=== PATIENT | male | born 1990 | race American Indian/Alaskan Native ===

== ENCOUNTER 2018-11-08 20:57 | Emergency (ER) | payer SELFPAY ==
--- NOTE | 2018-11-08 21:50 | Event Note ---
ED Screening Note Date of service: 11/08/18 Time: 21:47 ED Screening Note: 28 y o male presents with left hand pain and swelling s/p injury to hand yesterday This initial assessment/diagnostic orders/clinical plan/treatment(s) is/are subject to change based on patients health status, clinical progression and re- assessment by fellow clinical providers in the ED. Further treatment and workup at subsequent clinical providers discretion. Patient/guardian urged not to elope from the ED as their condition may be serious if not clinically assessed and managed. Initial orders include: xr hand
[2018-11-08 21:52] VITALS: BP 121/65
--- NOTE | 2018-11-08 22:56 | XRay Report ---
LEFT HAND 3 VIEWS 04/05/2007 INDICATION: pain and swelling COMPARISON: None available. FINDINGS: An oblique fracture is seen through the proximal to mid shaft of the fourth metacarpal with mild ventral angulation and dorsal displacement. No dislocation is seen. Signer Name: Yovani Sidhu MD Signed: 11/08/2018 10:52 PM Workstation Name: [id number]
[2018-11-08] MEDS ORDERED: NORCO 7.5/325 PO ONE (23:04)
[2018-11-08] MEDS ORDERED: IBUPROFEN PO ONE (23:04)
[2018-11-08] MEDS ORDERED: ZOFRAN ODT PO ONE (23:05)
--- NOTE | 2018-11-08 23:08 | Emergency Department Report ---
ED Upper Extremity Inj HPI - General Chief Complaint: Extremity Injury, Upper Stated Complaint: LT HAND SWOLLEN Time Seen by Provider: 11/08/18 21:47 Source: patient Mode of arrival: Ambulatory Limitations: No Limitations - History of Present Illness Initial Comments: Patient is a 28-year-old AA male with no past medical history who presents to the ED with complaint of acute onset persistent severe left hand pain with mild swelling and deformity after the left hand was crushed between two metallic plates at work when lifting heavy metallic objects about 4 hours ago. Patient states that he is unable to perform any active range of motion with the left hand because of severe pain. Patient denies fall, dizziness, nausea, vomiting, numbness and tingling or weakness of the left and, left wrist pain or injury or puncture wound. MD Complaint: Injury to:: left, hand -: Sudden, hour(s) (4) Other Extremity Injury: Hand: Left (left hand) Other Injuries: none Handedness: left (hand) Place: work Improves With: rest Worsens With: movement of extremity Context: direct blow, crush, injury Associated Symptoms: denies other symptoms. denies: weakness, numbness, neck pain, suspects foreign body, nausea/vomiting, heard/felt popping sensat, other - Related Data Previous Rx's Medication Instructions Recorded Last Taken Type Cyclobenzaprine [Flexeril] 10 mg PO Q8H PRN #21 tablet 11/08/18 Unknown Rx HYDROcodone/APAP 7.5-325 [[place] 1 each PO Q6HR PRN #12 tablet 11/08/18 Unknown Rx 7.5/325] Ibuprofen [Motrin] 600 mg PO Q8H PRN #24 tablet 11/08/18 Unknown Rx Allergies Allergy/AdvReac Type Severity Reaction Status Date / Time Iodine and Iodide Containing Allergy Hives Verified 11/08/18 21:16 Produc shellfish derived Allergy Angioedema Verified 11/08/18 21:16 ED Review of Systems ROS: Stated complaint: LT HAND SWOLLEN Other details as noted in HPI Constitutional: denies: chills, fever Eyes: denies: eye pain, eye discharge, vision change ENT: denies: ear pain, throat pain Respiratory: denies: cough, shortness of breath, wheezing Cardiovascular: denies: chest pain, palpitations Endocrine: no symptoms reported Gastrointestinal: denies: abdominal pain, nausea, diarrhea Genitourinary: denies: urgency, dysuria Musculoskeletal: joint swelling (left hand), arthralgia (left hand pain, swelling and mild deformity). denies: back pain Skin: denies: rash, lesions Neurological: denies: headache, weakness, paresthesias Psychiatric: denies: anxiety, depression Hematological/Lymphatic: denies: easy bleeding, easy bruising ED Past Medical Hx - Past Medical History Previous Medical History?: No - Surgical History Past Surgical History?: No - Social History Smoking Status: Current Every Day Smoker Substance Use Type: None - Medications Home Medications: Home Medications Medication Instructions Recorded Confirmed Last Taken Type Cyclobenzaprine [Flexeril] 10 mg PO Q8H PRN #21 tablet 11/08/18 Unknown Rx HYDROcodone/APAP 7.5-325 [[place] 1 each PO Q6HR PRN #12 tablet 11/08/18 Unknown Rx 7.5/325] Ibuprofen [Motrin] 600 mg PO Q8H PRN #24 tablet 11/08/18 Unknown Rx ED Physical Exam - General Limitations: No Limitations General appearance: alert, in no apparent distress - Head Head exam: Present: atraumatic, normocephalic, normal inspection - Eye Eye exam: Present: normal appearance, PERRL, EOMI Pupils: Present: normal accommodation - ENT ENT exam: Present: normal exam, normal orophraynx, mucous membranes moist, TM's normal bilaterally, normal external ear exam - Neck Neck exam: Present: normal inspection, full ROM. Absent: tenderness, meningismus - Respiratory Respiratory exam: Present: normal lung sounds bilaterally. Absent: respiratory distress, wheezes, rales, rhonchi, chest wall tenderness, accessory muscle use, decreased breath sounds - Cardiovascular Cardiovascular Exam: Present: regular rate, normal rhythm, normal heart sounds. Absent: systolic murmur, diastolic murmur, rubs, gallop - GI/Abdominal GI/Abdominal exam: Present: soft, normal bowel sounds. Absent: distended, tenderness, guarding, hyperactive bowel sounds, hypoactive bowel sounds, mass - Rectal Rectal exam: Present: deferred - Extremities Exam Extremities exam: Present: normal inspection, tenderness (left hand tenderness, swelling and mild deformity), joint swelling (left hand). Absent: full ROM (limited ROM due to pain), normal capillary refill, pedal edema, calf tenderness - Back Exam Back exam: Present: normal inspection, full ROM. Absent: tenderness, CVA tenderness (R), CVA tenderness (L), muscle spasm, paraspinal tenderness - Neurological Exam Neurological exam: Present: alert, oriented X3, CN II-XII intact, normal gait, reflexes normal - Psychiatric Psychiatric exam: Present: normal affect, normal mood - Skin Skin exam: Present: warm, dry, intact, normal color. Absent: rash ED Course Vital Signs 11/08/18 11/08/18 21:49 23:45 Temperature 98.3 F Pulse Rate 71 68 Respiratory 18 16 Rate Blood Pressure 121/65 O2 Sat by Pulse 100 99 Oximetry - Reevaluation(s) Reevaluation #1: 11/09/18 06:40 This is a 28-year-old male who presented to the ED with severe left hand pain, mild swelling and deformity after injury at work 4 hours ago. Patient is alert and oriented 3 and is not in distress. Patient was treated for pain in the ED and the left hand x-ray shows an oblique fracture through the proximal to mid shaft of the fourth metacarpal with mild ventral angulation and dorsal displacement. No dislocation is seen. Left hand was splinted with the ulna- gutter splint. The patient tolerated the procedure well and was neurovascularly intact after the procedure. The patient was discharged home on pain medications and given a referral to the orthopedic surgeon client support consultant Dr. Swift'alee for further evaluation. Patient is advised to contact Dr. Swift's office first thing on Saturday morning on 11/10/18 to schedule an appointment for follow up. The patient was however advised to return to the ED immediately if symptoms get worse. ED Medical Decision Making - Radiology Data Radiology results: report reviewed, image reviewed Findings [facility] [address] [place] [address] XRay Report Signed Patient: NETTIE LEE MR#: [id number] : 1990 Acct:[id number] Age/Sex: 28 / M ADM Date: 11/08/18 Loc: ED Attending Dr: Ordering Physician: LA SHAY Date of Service: 11/08/18 Procedure(s): XR hand 3+V LT Accession Number(s): [id number] cc: LA SHAY Fluoro Time In Minutes: LEFT HAND 3 VIEWS 04/05/2007 INDICATION: pain and swelling COMPARISON: None available. FINDINGS: An oblique fracture is seen through the proximal to mid shaft of the fourth metacarpal with mild ventral angulation and dorsal displacement. No dislocation is seen. Signer Name: Yovani Sidhu MD Signed: 11/08/2018 10:52 PM Workstation Name: [id number] Transcribed By: GJ Dictated By: Yovani Sidhu MD Electronically Authenticated By: Yovani Sidhu MD Signed Date/Time: 11/08/18 2259 - Medical Decision Making This is a 28-year-old male who presented to the ED with severe left hand pain, mild swelling and deformity after injury at work 4 hours ago. Patient is alert and oriented 3 and is not in distress. Patient was treated for pain in the ED and the left hand x-ray shows an oblique fracture through the proximal to mid shaft of the fourth metacarpal with mild ventral angulation and dorsal displacement. No dislocation is seen. Left hand was splinted with the ulna- gutter splint. The patient tolerated the procedure well and was neurovascularly intact after the procedure. The patient was discharged home on pain medications and given a referral to the orthopedic surgeon client support consultant Dr. Swift'alee for further evaluation. Patient is advised to contact Dr. Swift's office first thing on Saturday morning on 11/10/18 to schedule an appointment for follow up. The patient was however advised to return to the ED immediately if symptoms get worse. - Differential Diagnosis left hand contusion; left hand fracture; muscle strain Critical care attestation.: If time is entered above; I have spent that time in minutes in the direct care of this critically ill patient, excluding procedure time. ED Disposition Clinical Impression: Closed displaced fracture of fourth metacarpal bone of left hand Qualifiers: Encounter type: initial encounter Metacarpal location: shaft Qualified Code(s): S62.325A - Displaced fracture of shaft of fourth metacarpal bone, left hand, initial encounter for closed fracture Contusion of left hand including fingers Qualifiers: Encounter type: initial encounter Qualified Code(s): S60.222A - Contusion of left hand, initial encounter Disposition: - TO HOME OR SELFCARE Is pt being admited?: No Does the pt Need Aspirin: No Condition: Stable Instructions: Hand Fracture (ED), Contusion in Adults (ED) Additional Instructions: Take medications with food, drink plenty of fluids and follow-up with Dr. Swift, the Orthopedic Surgeon in the next 24-48 hours for further evaluation. Contact Dr. Swift's office to schedule an appointment for follow up. Return to the ED immediately if symptoms get worse. Prescriptions: Cyclobenzaprine [Flexeril] 10 mg PO Q8H PRN #21 tablet PRN Reason: Muscle Spasm Ibuprofen [Motrin] 600 mg PO Q8H PRN #24 tablet PRN Reason: Pain HYDROcodone/APAP 7.5-325 [[place] 7.5/325] 1 each PO Q6HR PRN #12 tablet PRN Reason: Pain Referrals: OSCAR SWIFT MD [Staff Physician] - 2-3 Days Forms: Work/School Release Form(ED) Time of Disposition: 23:07 Print Language: ALBANIAN
== END 2018-11-08 23:45 | disposition home or self-care (01) ==
LOC: ED 20:57
DX: S62.325A Displaced fracture of shaft of fourth metacarpal bone, left hand, initial encounter for closed fracture (principal); F17.200 Nicotine dependence, unspecified, uncomplicated; Z79.899 Other long term (current) drug therapy; Z91.013 Allergy to seafood; Z91.041 Radiographic dye allergy status; W23.0XXA Caught, crushed, jammed, or pinched between moving objects, initial encounter; Y93.89 Activity, other specified; Y92.89 Other specified places as the place of occurrence of the external cause; Y99.8 Other external cause status
CPT/HCPCS: Q0162